=== PATIENT | female | born 2000 | race Two or more races ===

== ENCOUNTER 2024-10-07 06:55 | Day surgery (SDC) | payer OTHER, MEDICAID, SELFPAY ==
--- NOTE | 2024-10-03 07:00 | EKG_ITS ---
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
[2024-10-03 13:10] LABS: Collection Type, Urine Clean Catch
[2024-10-03 13:16] LABS: Basophils # (Auto) 0.1 Thou/mm3 (0.0-0.2); Basophils % (Auto) 1 % (0-2.5); Eosinophils # (Auto) 0.1 Thou/mm3 (0.0-0.5); Eosinophils % (Auto) 1 % (0-10); Hemoglobin 12.3 g/dL (12.0-16.0); Immature Granulocytes % (Auto) 0 % (0-0); Immature Granulocytes Auto 0.01 Thou/mm3 (0.00-0.00); Lymphocytes # (Auto) 2.4 Thou/mm3 (1.0-4.8); Lymphocytes % (Auto) 35 % (10-50); Mean Corpuscular HGB Conc 32.4 g/dl (31.0-37.0); Mean Corpuscular Hemoglobin 28.2 pg (25.0-35.0); Mean Corpuscular Volume 87 fL (80-100); Monocytes # (Auto) 0.6 Thou/mm3 (0.0-0.8); Monocytes % (Auto) 9 % (0-12); Neutrophils # (Auto) 3.7 Thou/mm3 (1.8-7.7); Neutrophils % (Auto) 54 % (37-80); Nucleated Red Blood Cell % 0 /100 WBC (0); Platelet Count 236 Thou/mm3 (140-440); RDW Standard Deviation 43.2 fL (36.4-46.3); Red Blood Count 4.36 Miln/mm3 (4.00-5.20); White Blood Count 6.8 Thou/mm3 (3.6-11.0)
[2024-10-03 13:18] LABS: HCG Qualitative,Urine Negative
[2024-10-03 13:38] LABS: Amorphous Crystals,Urine Present (Absent); Bacteria,Urine Rare; Bilirubin,Urine Negative (Negative); Blood,Urine Trace (Negative); Color,Urine Lt-Yellow (Lt Yel-Yel); Glucose, Urine Negative (Negative); Ketones,Urine 2+ (Negative); Leukocyte Esterase,Urine Negative (Negative); Nitrite,Urine Negative (Negative); Protein,Urine Trace (Neg - Trace); RBC,Urine 5 /hpf (0-3); Specific Gravity,Urine 1.018 (1.001-1.035); Squamous Epithelial Cell,Urine 2 /hpf (0-5); WBC,Urine 1 /hpf (0-5)
[2024-10-03 13:42] LABS: INR 1.1 (0.9-1.3); Partial Thromboplastin Time 33.7 Seconds (22.0-36.0); Prothrombin Time 12.3 Seconds (9.0-12.2)
[2024-10-03 13:44] LABS: Clarity,Urine Hazy (Clear/Hazy)
[2024-10-03 13:50] LABS: Alanine Aminotransferase 13 U/L (10-49); Albumin, Serum 4.7 gm/dL (3.5-5.0); Albumin/Globulin Ratio 1.5 (1.2-2.2); Alkaline Phosphatase 91 U/L (46-116); Anion Gap 9 (7-16); Aspartate Amino Transferase 18 U/L (0-34); BUN/Creatinine Ratio 14 Ratio (12-20); Bilirubin,Total 0.5 mg/dL (0.3-1.2); Blood Urea Nitrogen 10 mg/dL (9-23); Chloride 103 mMol/L (98-107); Creatinine (Component) 0.7 mg/dL (0.6-1.3); Globulin 3.2 gm/dL (2.3-3.5); Potassium 4.1 mMol/L (3.4-5.1); Sodium 138 mMol/L (136-145); Total Protein 7.9 gm/dL (5.7-8.2); eGFR > 60 See Note
[2024-10-03 14:00] LABS: Glucose 79 mg/dL (74-106); Osmolality,Calculated 273 (275-295)
--- NOTE | 2024-10-06 09:28 | PD.SURHP ---
HPI Date of Admission October 07, 2024 Chief Complaint Chief Complaint: Refractory gastroesophageal acid and nonacid reflux. 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 She got better but could not be athletic in the schools because that produced gastroesophageal reflux and discomfort. She also has a asthma attack and shortness of breath with gastroesophageal reflux. She has a strong family history of hiatal hernia gastroesophageal reflux in her family. Now she has been on PPI medication for a period of long time and is still not working she continues to wake up with the liquid in her mouth and she was evaluated and found to have significant amount of gastroesophageal reflux and is requesting antireflux surgery. Risk benefits and alternatives were discussed with the patient and informed consent is obtained. The risk include risk of bleeding and possible laparotomy. Past Medical History Past Medical History NEUROLOGIC: Negative Neurological Disorders CARDIAC: Negative Cardiac Disorders or Congestive Heart Failure RESPIRATORY: Positive Respiratory Disorders and Asthma; Negative Chronic Obstructive Pulmonary Disease (COPD) GASTROINTESTINAL: Positive Gastrointestinal Disorders, Hiatal Hernia and Gastroesophageal Reflux Disease GENITOURINARY: Negative Genitourinary Disorders or Renal Disease REPRODUCTIVE: Negative Previous Pregnancies MUSCULOSKELETAL: Negative Musculoskeletal Disorders ENT: Negative History of ENT Problems ENDOCRINE: Negative Endocrine Disorders, Diabetes Mellitus Type 1 or Diabetes Mellitus Type 2 HEMATOLOGIC: Negative Blood Disorders OTHER HISTORY: Positive Hospitalization; Negative Autoimmune Disease, Shingles, Blood Transfusions, Anesthesia Reactions or Cancer Family History FAMILY HISTORY: Positive Family Cardiac Disorders, Family Gastrointestinal Problems, Family Endocrine Disorders, Family Cancer and Family Surgery; Negative Family Psychiatric Problems, Family Respiratory Disorders, Family Genitourinary Problems, Family Reproductive Disorders, Family Musculoskeletal Disorders or Family Anesthesia Reaction Social History SMOKING STATUS: Never smoker Travel History EBOLA RISK: No Meds Home Medications and Allergies Home Medications ?Medication ?Instructions ?Recorded ?Confirmed ?Type albuterol sulfate 90 mcg/actuation 1 puff inhalation QID PRN 10/03/24 10/03/24 History aerosol inhaler Shortness Of Breath Or Wheezing fluticasone 100 mcg-salmeterol 50 ea inhalation Q12H asthma 10/03/24 History mcg/dose blistr powdr for inhalation (Wixela Inhub) Allergies Allergy/AdvReac Type Severity Reaction Status Date / Time No Known Allergies Allergy Verified 10/03/24 12:28 Exam Constitutional Constitutional: no acute distress Routine HEENT Exam Head: Present normocephalic Eye: Present EOMI and PERRL ENT: Present mucous membranes moist Routine Neck Exam Neck: Present supple and trachea midline Routine Chest/Breast/Axilla Exam Chest wall: Absent tenderness or mass Routine Respiratory Exam Respiratory: Present chest non-tender, lungs clear, normal breath sounds and no resp distress; Absent respiratory distress Routine Cardiovascular Exam Cardiovascular: Present RRR Routine Abdominal Exam Abdominal: Present soft and normoactive bowel sounds Routine Extremities Exam Extremities: Present full ROM Routine Skin Exam Skin: Present intact, dry and warm Routine Neurological Exam Neurological: Present alert, oriented X3 and CN II-XII intact Routine Psychiatric Exam Psychiatric: Present normal affect and normal thought process Results Results: Laboratory Laboratory results: results reviewed Assessment & Plan Problem List (1) Hiatal hernia with gastroesophageal reflux disease and esophagitis: Status: Acute (2) GERD with esophagitis: Status: Acute Plan Laparoscopic hiatal hernia repair with implantation of a patch and laparoscopic Evelina fundoplication. Risk benefits alternatives were discussed with the patient and informed consent is obtained the risk includes risk of bleeding and possible laparotomy. Quality Measures Quality Measures VTE prophylaxis
[2024-10-07] VITALS (26 sets, daily range): BP systolic 93–130; BP diastolic 56–88; PULSE 77–122; RESP 15–98; TEMP 36.2–37.2; O2SAT 97–100; BMI 22.6
[2024-10-07] MEDS: ALBUTEROL RT 2.5 MG/3 ML NEBU INH (07:51)
[2024-10-07] MEDS: RINGERS LACTATED 1000 ML 1,000 ML 60 ML IV (07:54)
--- NOTE | 2024-10-07 11:20 | SUR.PHASEI ---
Addendum entered by Arleth Dangelo RN 10/07/24 11:59: urinary catheter 16F in place with leg secure, draining to gravity Original Note: 1120 Patient arrived to recovery in bed, restless and required emotional support and prompting with reassurance, patient stated, I need to pee , sitting up in bed, patient educated that she has a davila catheter, patient drowsy and able to understand she has a catheter in place, on oxygen 8L via oxy mask, breathing unlabored, vital signs stable, dressing intact to abdomen X5 steri-strips, gauze, tegaderm, no bleeding noted, lung sounds clear upon auscultation, bilateral radial pulses present when palpated, report received from Silviano STEWARD and Dr. Olivas
--- NOTE | 2024-10-07 11:26 | ESOP_ITS ---
Date of Procedure 10/07/24 Pre Op Diagnosis Refractory gastroesophageal reflux and hiatal hernia unresponsive to PPI medication Post Op Diagnosis Same. Procedure Laparoscopic hiatal hernia repair with implantation of a patch and 360 degree Evelina fundoplication on October 07, 2024 Findings This patient had a 6 cm hiatal hernia that required repair. Procedure Description Patient was interviewed in the preop holding area and the procedure was discussed in detail. Risk benefits and alternatives were also discussed and informed consent is obtained. The patient was then brought to the operating room by the nursing staff. The patient was positioned in supine position on the operating table. Gen. anesthesia was administered in a satisfactory manner. The patient was positioned in the modified lithotomy position in the [facility]. Patient was given prophylactic IV antibiotics half an hour before the procedure started. The Flowtron's are applied to both legs is anti-embolism mechanism. The chest abdomen and genitalia and the legs are prepped and draped in usual manner. An open laparoscopic procedure is carried out and balloon cannula is inserted through the supraumbilical incision. Balloon cannula was introduced. After that the pneumoperitoneum is achieved. The patient is positioned in the reverse Trendelenburg position. The 30? scope is used. Under direct vision a 5 mm cannula is inserted in the subxiphoid location, 10 mm cannula is inserted in the left midclavicular location, a 10 mm cannula is inserted in the left anterior axillary line and a 5 mm cannula is inserted in the right midclavicular line. A Janee retractor is used through the subxiphoid incision to retract the left lobe of the liver to the right side. The harmonic ultrasonic katt are used to divide the gastrohepatic omentum. The dissection is carried out towards the diaphragmatic hiatus and the esophago- phrenic gastrophrenic and gastrosplenic ligaments are divided with the harmonic ultrasonic katt. A retroesophageal window is created protecting the posterior vagus nerve and an umbilical tape is passed around the esophagus to be used as a retractor. Further dissection is carried out in the posterior mediastinum and the esophagus is further freed from the mediastinal structures and the esophagus is pulled down into the abdomen. The greater curvature of the stomach is examined and the short gastric vessels on the greater curvature were divided with harmonic ultrasonic katt. The gastrosplenic ligaments are divided in a similar manner and the gastropancreatic ligaments are divided. After the greater curvature and the fundus is freed completely the examination is carried out in the retroesophageal space and small ligaments are divided. The hemostasis is already achieved. The hiatal hernia defect is examined carefully and it is repaired by intra and extracorporeal technique with a 3-0 Ethibond interrupted sutures. The diaphragmatic repair is carried out posterior to the esophagus. Enough space his left around the esophagus to avoid obstruction. At this point phasic's ST bioabsorbable patch was used and tailored in place and placed in an onlay manner over the diaphragmatic repair and sutured in place. Multiple sutures were taken on both the side of the esophagus between the diaphragm and the patch and also patch was sutured over the diaphragmatic repair. Now the Evelina 360? fundoplication is carried out. The orogastric tube is removed and a 56 [place] Islander Bains dilator is inserted into the esophagus and stomach by the anesthesiologist. This is used as an internal stent for calibration of the lumen. Now the freed fundus is brought around the esophagus from the left side behind the esophagus to the front on the right side and it is sutured to the left side of the fundus by intracorporeal and extracorporeal techniques using a 3-0 Ethibond interrupted sutures. There are 3 sutures placed to complete the fundoplication. The sutures passed through right and left side of the fundus as well as anterior wall of the esophagus. The Bains dilator is removed. Multiple Lembert stitchs are taken between the right and left side of the fundus to the esophagus. The operative field is thoroughly irrigated with saline solution and the hemostasis is achieved. The umbilical tape is divided and it is removed. The Interceed an anti-adhesion barrier is placed between the liver and the stomach. The Janee retractor is removed under direct vision. All the cannulas are removed under laparoscopic vision and there is no bleeding from the cannula site incisions. The balloon cannula is removed and the pneumoperitoneum is allowed to escape. The midline incision is closed in layers. The fascia is approximated by 2-0 Vicryl continuous sutures. The subcutaneous tissue is approximated by 3-0 chromic suture and the skin is approximated by 4-0 nylon interrupted sutures. The trocar site incisions are closed with the 3-0 chromic and a 4-0 nylon stitches. Sterile dressings are applied. The patient tolerated the procedure very well and is transferred to the recovery room in satisfactory condition. Anesthesia GETA Drains None. Implants Phasic ST patch over the right Pathology / specimen None Estimated Blood Loss 20 Condition Stable Disposition PACU Surgeon Alexey Oglesby MD Surgical Staff Operation Date: 10/07/24 07:30 Case Staff Anesthesiologist: Jose Manuel Olivas RN First Assistant: Letty Andre RN First Assistant: Missy Raza RN washer off Anna manufacturing engineering technologist (2) GERD with esophagitis Qualifiers: Esophagitis bleeding: without hemorrhage Qualified Code(s): K21.00 - Gastro- esophageal reflux disease with esophagitis, without bleeding
--- NOTE | 2024-10-07 12:17 | SUR.PHASEII ---
1217 Report given to Arleth Wright RN
--- NOTE | 2024-10-07 12:17 | SUR.PHASEII ---
pt resting comfortably in bed, breathing unlabored on room air, VS stable, dressing to abdomen clean, dry, and intact x5 ports, report from Arleth David RN
[2024-10-07] MEDS: KETOROLAC INJ 30 MG/ML VIAL IVP ×2 (12:43→17:37)
--- NOTE | 2024-10-07 12:50 | SUR.PHASEII ---
5030 Report received from Arleth Wright RN
--- NOTE | 2024-10-07 12:50 | SUR.PHASEII ---
pt resting in bed, VS stable, breathing unlabored on room air, dressing to abdomen clean, dry, and intact, Report to Arleth David RN
--- NOTE | 2024-10-07 13:00 | SUR.PHASEII ---
1300 Patients brother notified patient in recovery, resting comfortably, will update him when patient gets a room, all questions answer from her brother
[2024-10-07] MEDS: ACETAMINOPHEN IVPB 1,000 MG/100 ML VIAL 250 MG IV ×2 (14:53→20:10)
--- NOTE | 2024-10-07 15:41 | SUR.PHASEII ---
1536 Report given to Tessa RN, patient meets discharge criteria from recovery, awake and talking with staff, breathing unlabored, vital signs stable, per patient her pain is tolerable, dressing intact; no bleeding noted, patient drinking 7up; tolerating well, denies nausea, urinary catheter drained 500ml of clear, yellow urine, prior to discharge from recovery 1541 Patient transported via be to room 381 without incident
--- NOTE | 2024-10-07 15:46 | SUR.PHASEII ---
1545 Patients brother notified of patients room assignment on [facility]
[2024-10-07] MEDS: HYDROcodone/APAP 10/325 TAB PO (16:05)
[2024-10-07] MEDS: GABAPENTIN 100 MG CAPSULE 200 MG PO (20:09)
[2024-10-08] VITALS: BP 96/61; PULSE 75; RESP 16; TEMP 36.2; O2SAT 98
[2024-10-08] MEDS: KETOROLAC INJ 30 MG/ML VIAL IVP ×3 (00:23→11:43)
[2024-10-08] MEDS: ACETAMINOPHEN IVPB 1,000 MG/100 ML VIAL 250 MG IV (02:56)
[2024-10-08 04:00] VITALS: BP 106/68; PULSE 74; RESP 19; TEMP 36.2; O2SAT 99
[2024-10-08 08:00] VITALS: BP 106/79; PULSE 90; RESP 17; TEMP 36.2; O2SAT 99
[2024-10-08] MEDS: GABAPENTIN 100 MG CAPSULE 200 MG PO (09:31)
[2024-10-08 09:48] VITALS: BMI 22.6
[2024-10-08 12:00] VITALS: BP 107/66; PULSE 82; RESP 20; TEMP 36.2; O2SAT 99
--- NOTE | 2024-10-08 12:42 | ESDS_ITS ---
Planned Discharge Date 10/08/24 DS: Providers Provider Date of admission: 10/07/24 Primary care physician: Don Saldana MD Attending Provider on Admission: Alexey Oglesby MD Attending Provider on DC: Alexey Oglesby MD Discharging Provider: Alexey Oglesby MD Diagnosis Discharge Diagnosis (1) S/P laparoscopic fundoplication: Status: Acute (2) GERD with esophagitis: Status: Acute (3) Hiatal hernia with gastroesophageal reflux disease and esophagitis: Status: Acute (4) Post-op pain: Status: Acute Problem List Completed Was Problem List Reviewed/Reconciled?: Yes Hospital Course This patient was brought to OR for laparoscopic hiatal hernia repair and Evelina fundoplication. This was done on 10/07/24. Postoperatively she needed IV narcotics for pain management. The davila catheter was removed and she was able to void. She got out of bed and ambulated in hallways on POD 1. She was started on clear liquid diet and advanced to full liquid diet. She tolerated that well. Her pain is managed with oral pain meds. She is discharged on liquid diet for 10 days and follow up in office in 10 days. Condition markedly improved. Status at Discharge Functional status at discharge: independent ambulation Exam Vital Signs Temp Pulse Resp BP Pulse Ox O2 Del Method O2 Flow Rate 97.1 F 82 20 107/66 99 Room Air 2 10/08/24 12:00 10/08/24 12:00 10/08/24 12:00 10/08/24 12:00 10/08/24 12:00 10/08/24 12:00 10/07/24 11:50 Narrative Exam Abdomen is soft and nondistended. Cardiopulmonary exam is normal. Ext wnl Discharge Plan Plan Patient Disposition: HOME (Self Care) Disposition Comment: follow up in office in 10 days. Prescriptions/Referrals Prescriptions/Med Rec: New hydrocodone-acetaminophen 10-325 mg tablet 1 tab PO Q6H MDD 4 PRN (Reason: pain) Qty: 28 0RF No Action fluticasone propion-salmeterol [Wixela Inhub] 100-50 mcg/dose blister with device 1 ea INHALATION Q12H Patient Comments: TAKE 1 PUFF BY MOUTH EVERY 12 HOURS IN THE MORNING AND IN THE EVENING albuterol sulfate 90 mcg/actuation Hfa Aerosol Inhaler 1 puff INHALATION QID PRN (Reason: Shortness Of Breath Or Wheezing) Referrals: Don Saldana MD [Primary Care Provider] - Patient/Caregiver Discharge Instructions Print Language: Frisian Stand Alone Forms: Shara Award Info., Patient Portal Info Letter Discharge Order Discharge Orders: Discharge (Routine); Ordered 10/08/24 Ordered By: Alexey Oglesby Procedures Procedure Date 10/07/24 Procedures Laparoscopic hiatal hernia repair with implantation of a patch and 360 degree Evelina fundoplication on October 07, 2024 (2) GERD with esophagitis Qualifiers: Esophagitis bleeding: without hemorrhage Qualified Code(s): K21.00 - Gastro- esophageal reflux disease with esophagitis, without bleeding
--- NOTE | 2024-10-08 12:50 | PC.SS ---
SS met with patient regarding her d/c plan. Pt is alert/oriented. Pt was admitted for [place] [id number]. Pt confirmed demographic and contact information is correct on facesheet. Pt resides with both parents. Pt ambulates independently without assistance or DME. Pt is ok with all ADLs. Patient?s pharmacy of choice is [facility] [address] in [place]. Pt named her mom, Kathy Tolbertrejinigel and dad, Emile John medical decision makers if she is unable. Patient?s choice is to return home upon d/c. Pt states not diabetic and is not on dialysis. D/C plan: Return home Next of Kin: Emile Lopez, tima, phone# [phone] & Kathy Lopez, mom, phone# [phone] PCP: Dr. Liza Saldana from [facility] in [place] Address: [address]
--- NOTE | 2024-10-08 12:52 | ESPR_ITS ---
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 She got better but could not be athletic in the schools because that produced gastroesophageal reflux and discomfort. She also has a asthma attack and shortness of breath with gastroeso phageal reflux. She has a strong family history of hiatal hernia gastroesophageal reflux in her family. Now she has been on PPI medication for a period of long time and is still not working she continues to wake up with the liquid in her mouth and she was evaluated and found to have significant amount of gastroesophageal reflux and is requesting antireflux surgery. Risk benefits and alternatives were discussed with the patient and informed consent is obtained. The risk include risk of bleeding and possible laparotomy. Postop Day 1:10/08/2024 Coleman is doing better. There is minimal pain. She had davila catheter removed. She is voiding after that. She tolerated full liquid diet well and she is ambulating in the rangel ways. She wants to go home. Exam Vital Signs Temp Pulse Resp BP Pulse Ox O2 Del Method O2 Flow Rate 97.1 F 82 20 107/66 99 Room Air 2 10/08/24 12:00 10/08/24 12:10/08/24 12:10/08/24 12:10/08/24 12:10/08/24 12:10/07/24 11:50 Narrative Exam Abdomen is soft and nonter and nondistended. Cardiopulmonary exam is unremarkable. Ext wnl. Assessment & Plan Diagnosis (1) S/P laparoscopic fundoplication: Status: Acute (2) GERD with esophagitis: Status: Acute (3) Hiatal hernia with gastroesophageal reflux disease and esophagitis: Status: Acute (4) Post-op pain: Status: Acute Plan Discharge home on oral pain medications. Stay on liquid diet for 10 days. Follow up in office in 10 days. Procedures Procedure Date 10/07/24 Procedures Laparoscopic hiatal hernia repair with implantation of a patch and 360 degree Evelina fundoplication on October 07, 2024 (2) GERD with esophagitis Qualifiers: Esophagitis bleeding: without hemorrhage Qualified Code(s): K21.00 - Gastro- esophageal reflux disease with esophagitis, without bleeding
--- NOTE | 2024-10-08 14:06 | CHAP ---
09:30 AM Visited by spiritual care volunteer Provided prayer for Patient.
== END 2024-10-08 15:41 | disposition home or self-care (01) ==
LOC: S2EX 07:23 → S3SX 10-08 12:48
PROVIDERS: Anesthesiology; PCP Internal Medicine Pulmonary Disease; Referring Provider Specialist; Visit Provider Specialist
PROC: 0DV44ZZ Restriction of Esophagogastric Junction, Percutaneous Endoscopic Approach (ICD-10-PCS; CPT 43280; principal; 2024-10-07 07:30)
DX: K44.9 Diaphragmatic hernia without obstruction or gangrene (principal); K21.00 Gastro-esophageal reflux disease with esophagitis, without bleeding; J45.909 Unspecified asthma, uncomplicated; Z01.810 Encounter for preprocedural cardiovascular examination
CPT/HCPCS: 43282; 36415; 80053; 81001; 81025; 85025; 85610; 85730; 93005; A4217; A4649; C1781; J0131; J0694; J1100; J1885; J2250; J2405; J2704; J3010; J3490; J7120; A9270